=== PATIENT | female | born 1995 | race Two or more races ===

== ENCOUNTER 2024-04-13 12:39 | Emergency (ER) | payer SELFPAY ==
[~2024-04-13] VITALS: Ht 165.1 cm; Wt 117.9 kg
[2024-04-13] MEDS: SODIUM CHLORIDE 0.9% 1000ML 1,000 ML IV ONE (13:22)
[2024-04-13] MEDS ORDERED: ZOLOFT50 MG PO (14:51)
[2024-04-13] MEDS ORDERED: CEPHALEXIN500 MG PO (15:05)
[2024-04-13 15:21] VITALS: PULSE 48; RESP 17; TEMP 97.6; O2SAT 98
[2024-04-14] MEDS ORDERED: IOPAMIDOL 370 MG/ML 100 ML INFUS..BTL INJ ONE (07:31)
== END 2024-04-13 15:28 | disposition home or self-care (01) ==
LOC: FSED 12:44
DX: R06.02 Shortness of breath (principal); N30.90 Cystitis, unspecified without hematuria; F41.9 Anxiety disorder, unspecified; Z11.52 Encounter for screening for COVID-19; R94.31 Abnormal electrocardiogram [ECG] [EKG]
CPT/HCPCS: 0223U; 71260; 80053; 81003; 81025; 82553; 84484; 85025; 87400; 93005; 99284; J7030; Q9967